=== PATIENT | female | born 1950 | race Caucasian/White ===

== ENCOUNTER 2017-12-11 06:31 | Emergency (ER) | payer MEDICARE, BC ==
[2017-12-11 06:43] VITALS: BP 193/94
--- NOTE | 2017-12-11 07:43 | EDM.PDOCBH ---
ED HPI GENERAL MEDICAL PROBLEM - General Chief Complaint: Behavioral/Psych Stated Complaint: CAN'T SLEEP Time Seen by Provider: 12/11/17 07:00 Source of Information: Reports: Patient History Limitations: Reports: No Limitations - History of Present Illness INITIAL COMMENTS - FREE TEXT/NARRATIVE: 67-year-old female with a chronic history of anxiety is in the emergency room because of persistent sense of unrest, hypertension, inability to sleep for the past several days. No chest pain, shortness of breath, fevers or chills or other physical symptoms. Apparently she was in the clinic several days ago and received some hydroxyzine, it's not working. 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: Psychiatric History: Reports: Anxiety - Infectious Disease History Infectious Disease History: Reports: Chicken Pox, Measles, Mumps Other Infectious Disease History: unknown - Past Surgical History HEENT Surgical History: Reports: Oral Surgery Female Surgical History: Reports: Tubal Ligation Social & Family History - Tobacco Use Smoking Status *Q: Unknown Ever Smoked - Caffeine Use Caffeine Use: Reports: Coffee ED ROS GENERAL - Review of Systems Review Of Systems: See Below Constitutional: Denies: Fever, Chills HEENT: Reports: No Symptoms Respiratory: Denies: Shortness of Breath, Cough Cardiovascular: Denies: Chest Pain, Palpitations GI/Abdominal: Denies: Nausea, Vomiting Skin: Reports: No Symptoms Neurological: Denies: Headache Psychiatric: Reports: Anxiety, Other (insomnia) ED EXAM, BEHAVIORAL HEALTH - Physical Exam Exam: See Below Exam Limited By: No Limitations General Appearance: Alert, No Apparent Distress, Anxious (patient is very anxious, at times tearful) Throat/Mouth: Normal Inspection Head: Atraumatic Neck: Normal Inspection Respiratory/Chest: No Respiratory Distress, Lungs Clear Cardiovascular: Regular Rate, Rhythm. No: Extra Beats Neurological: Alert, Oriented x 3 Psychiatric: Restless, Other (very anxious) COURSE, BEHAVIORAL HEALTH COMP - Course Vital Signs: Last Vital Signs Temp 96.9 F 12/11/17 06:41 Pulse 91 12/11/17 06:41 Resp 15 12/11/17 06:41 BP 193/94 H 12/11/17 06:41 Pulse Ox 95 12/11/17 06:41 Re-Assessment/Re-Exam: I ssessed the patient's records from the clinic, and on her medication list is 150 mg extended release Wellbutrin on a daily basis. There is also when necessary Klonopin. When I asked her about these medications she said she stopped the Wellbutrin 5 or 6 days ago because it was for weight loss and it "wasn't working". She doesn't remember the last time she has had Klonopin. Salvador is also on her medication list, she doesn't think she's taking that anymore. I told her it's very possible her symptoms are correlated with the stopping of the Wellbutrin but then a few minutes later she asked again why she is having her symptoms. She needs to go talk to her primary provider and get these medication issue straightened out. Juany is also listed on her medications and she doesn't take that anymore because she "didn't think she needed it". Departure - Departure Time of Disposition: 07:56 Disposition: Home, Self-Care 01 Condition: Good Clinical Impression: Anxiety, Essential hypertension - Discharge Information Instructions: Generalized Anxiety Disorder, Adult Referrals: Liana Suazo MD [Primary Care Provider] - Forms: ED Department Discharge Care Plan Goals: Restart Wellbutrin as prescribed. Continue your other medications and use Ativan as directed to help you calm down and get sleep. It is extremely important that you contact your regular doctor next week karina appointment to discuss your medications.
== END 2017-12-11 07:56 | disposition home or self-care (01) ==
LOC: JP.ED 06:31
DX: F41.9 Anxiety disorder, unspecified (principal); I10 Essential (primary) hypertension; E78.00 Pure hypercholesterolemia, unspecified; Z79.899 Other long term (current) drug therapy
CPT/HCPCS: 99285

== ENCOUNTER 2018-01-27 10:25 | Emergency (ER) | payer MEDICARE, BC ==
[2018-01-27] MEDS ORDERED: LORazepam 0.5 MG Tab PO ONE (11:10)
[2018-01-27] MEDS ORDERED: Potassium Chloride 20 MEQ Tab.ER PO ONE (12:25)
--- NOTE | 2018-01-27 12:25 | EDM.PDOCBH ---
ED HPI GENERAL MEDICAL PROBLEM - General Chief Complaint: Behavioral/Psych Stated Complaint: ANXIETY ATTACK Time Seen by Provider: 01/27/18 10:40 Source of Information: Reports: Patient History Limitations: Reports: No Limitations - History of Present Illness INITIAL COMMENTS - FREE TEXT/NARRATIVE: pt arrived very tense and stated that she had alot of wandering thoughts and kept going over what she had not gotten done for the day. She is not able to rest and becomes very sleep deprived. Onset: Gradual, Other ( This has been going on since early December. ) Duration: Hour(s):, Getting Worse Location: Reports: Head Associated Symptoms: Reports: No Other Symptoms - Related Data Allergies Allergy/AdvReac Type Severity Reaction Status Date / Time No Known Allergies Allergy Verified 01/27/18 10:41 Home Meds: Home Meds Lisinopril 20 mg PO DAILY 06/03/16 [History] hydrOXYzine HCl [Atarax] 25 mg PO Q8H 12/11/17 [History] Atenolol 1 tab PO DAILY 01/27/18 [History] LORazepam 1 tab PO ASDIRECTED 01/27/18 [History] Pravastatin Sodium 1 tab PO DAILY 01/27/18 [History] Past Medical History HEENT History: Reports: Impaired Vision Cardiovascular History: Reports: High Cholesterol, Hypertension 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: Psychiatric History: Reports: Anxiety - Infectious Disease History Infectious Disease History: Reports: Chicken Pox, Measles, Mumps Other Infectious Disease History: unknown - Past Surgical History HEENT Surgical History: Reports: Oral Surgery Female Surgical History: Reports: Tubal Ligation Social & Family History - Tobacco Use Smoking Status *Q: Heavy Tobacco Smoker Years of Tobacco use: 40 Packs/Tins Daily: 1 - Caffeine Use Caffeine Use: Reports: Coffee - Recreational Drug Use Recreational Drug Use: No ED ROS GENERAL - Review of Systems Review Of Systems: See Below Constitutional: Reports: No Symptoms HEENT: Reports: No Symptoms Respiratory: Reports: No Symptoms Cardiovascular: Reports: No Symptoms Endocrine: Reports: No Symptoms GI/Abdominal: Reports: No Symptoms : Reports: No Symptoms Musculoskeletal: Reports: No Symptoms Skin: Reports: No Symptoms Neurological: Reports: Trouble Speaking, Other (liteheaded, pt was so tense that she had difficulty speaking. ) Psychiatric: Reports: Anxiety, Depression Hematologic/Lymphatic: Reports: No Symptoms ED EXAM, BEHAVIORAL HEALTH - Physical Exam Exam: See Below Text/Narrative:: Pt arrived with a history of racing thoughts and going over and over what she should have gotten done. She is not restimg. Exam Limited By: No Limitations General Appearance: Alert, Mild Distress, Other (ppupils equal and reactive. ) Ears: Normal TMs Nose: Normal Inspection Throat/Mouth: Normal Inspection Head: Atraumatic Neck: Normal Inspection Respiratory/Chest: No Respiratory Distress Cardiovascular: Regular Rate, Rhythm GI/Abdominal: Soft, Non-Tender (Female) Exam: Deferred Rectal (Female) Exam: Deferred Back Exam: Normal Inspection Extremities: Normal Inspection Neurological: Alert, Oriented x 3 Psychiatric: Alert, Oriented, Restless, Agitated COURSE, BEHAVIORAL HEALTH COMP - Course Vital Signs: Last Vital Signs Temp 35.4 C 01/27/18 10:40 Pulse 99 01/27/18 13:17 Resp 24 H 01/27/18 13:17 BP 133/84 01/27/18 13:17 Pulse Ox 96 01/27/18 13:17 Orthostatic Blood Pressure [ 145/70 Standing] Orthostatic Blood Pressure [ 153/77 Sitting] Orthostatic Blood Pressure [ 144/79 Supine] Orders, Labs, Meds: Laboratory Tests 01/27/18 01/27/18 01/27/18 Range/Units 11:09 11:09 11:09 WBC 15.8 H (4.5-11.0) K/uL RBC 4.93 (3.30-5.50) M/uL Hgb 14.9 (12.0-15.0) g/dL Hct 43.9 (36.0-48.0) % MCV 89 (80-98) fL MCH 30 (27-31) pg MCHC 34 (32-36) % Plt Count 259 (150-400) K/uL Neut % (Auto) 64 (36-66) % Lymph % (Auto) 24 (24-44) % [place] % (Auto) 10 H (2-6) % Eos % (Auto) 1 L (2-4) % Baso % (Auto) 0 (0-1) % Sodium 136 L (140-148) mmol/L Potassium 3.2 L (3.6-5.2) mmol/L Chloride 101 (100-108) mmol/L Carbon Dioxide 23 (21-32) mmol/L Anion Gap 15.2 H (5.0-14.0) mmol/L BUN 63 H D (7-18) mg/dL Creatinine 2.7 H D (0.6-1.0) mg/dL Est Cr Clr Drug Dosing 18.67 mL/min Estimated GFR (MDRD) 18 L (>60) Glucose 111 H (74-106) mg/dL Calcium 8.8 (8.5-10.1) mg/dL Total Bilirubin 0.5 (0.2-1.0) mg/dL AST 19 (15-37) U/L ALT 23 (12-78) U/L Alkaline Phosphatase 63 (46-116) U/L Total Protein 6.7 (6.4-8.2) g/dL Albumin 3.6 (3.4-5.0) g/dL Globulin 3.1 (2.3-3.5) g/dL Albumin/Globulin Ratio 1.2 (1.2-2.2) TSH, Ultra Sensitive 1.110 (0.358-3.740) uIU/mL Urine Color Urine Appearance Urine pH (4.5-8.0) Ur Specific [place] (1.008-1.030) Urine Protein (NEGATIVE) mg/dL Urine Glucose (UA) (NEGATIVE) mg/dL Urine Ketones (NEGATIVE) mg/dL Urine Occult Blood (NEGATIVE) Urine Nitrite (NEGATIVE) Urine Bilirubin (NEGATIVE) Urine Urobilinogen (NORMAL) mg/dL Ur Leukocyte Esterase (NEGATIVE) Urine RBC (0-5) Urine WBC (0-5) Ur Epithelial Cells Amorphous Sediment Urine Bacteria Urine Mucus 01/27/18 Range/Units 11:46 WBC (4.5-11.0) K/uL RBC (3.30-5.50) M/uL Hgb (12.0-15.0) g/dL Hct (36.0-48.0) % MCV (80-98) fL MCH (27-31) pg MCHC (32-36) % Plt Count (150-400) K/uL Neut % (Auto) (36-66) % Lymph % (Auto) (24-44) % [place] % (Auto) (2-6) % Eos % (Auto) (2-4) % Baso % (Auto) (0-1) % Sodium (140-148) mmol/L Potassium (3.6-5.2) mmol/L Chloride (100-108) mmol/L Carbon Dioxide (21-32) mmol/L Anion Gap (5.0-14.0) mmol/L BUN (7-18) mg/dL Creatinine (0.6-1.0) mg/dL Est Cr Clr Drug Dosing mL/min Estimated GFR (MDRD) (>60) Glucose (74-106) mg/dL Calcium (8.5-10.1) mg/dL Total Bilirubin (0.2-1.0) mg/dL AST (15-37) U/L ALT (12-78) U/L Alkaline Phosphatase (46-116) U/L Total Protein (6.4-8.2) g/dL Albumin (3.4-5.0) g/dL Globulin (2.3-3.5) g/dL Albumin/Globulin Ratio (1.2-2.2) TSH, Ultra Sensitive (0.358-3.740) uIU/mL Urine Color Yellow Urine Appearance Slightly cloudy Urine pH 5.0 (4.5-8.0) Ur Specific [place] 1.015 (1.008-1.030) Urine Protein Negative (NEGATIVE) mg/dL Urine Glucose (UA) Normal (NEGATIVE) mg/dL Urine Ketones Negative (NEGATIVE) mg/dL Urine Occult Blood Negative (NEGATIVE) Urine Nitrite Negative (NEGATIVE) Urine Bilirubin Negative (NEGATIVE) Urine Urobilinogen Normal (NORMAL) mg/dL Ur Leukocyte Esterase Large (NEGATIVE) Urine RBC 0-5 (0-5) Urine WBC 20-30 H (0-5) Ur Epithelial Cells Many Amorphous Sediment Not seen Urine Bacteria Not seen Urine Mucus Few Medications Discontinued Medications Generic Name Dose Route Start Last Admin Trade Name Freq PRN Reason Stop Dose Admin Sodium Chloride 1,000 mls @ 500 mls/hr 01/27/18 12:30 01/27/18 13:14 Normal Saline IV 500 mls/hr ASDIRECTED JAZZMINE Administration Lorazepam 0.5 mg 01/27/18 11:10 01/27/18 11:15 Ativan PO 01/27/18 11:11 0.5 mg ONETIME ONE Administration Potassium Chloride 20 meq 01/27/18 12:25 01/27/18 13:00 Klor-Con M20 PO 01/27/18 12:26 20 meq ONETIME ONE Administration Medical Clearance: 01/27/18 13:45 pt had a creatnine in 01/11 and it was 1.7, Her creatnine today is 2.7. She admits to not drinking fluids well. She has been very anxious and not doing well. Departure - Departure Time of Disposition: 14:45 Disposition: Home, Self-Care 01 Condition: Fair Clinical Impression: Renal insufficiency, Dehydration, UTI (urinary tract infection), Anxiety, Obsessive behaviors - Discharge Information Instructions: Generalized Anxiety Disorder, Adult, Urinary Tract Infection, Adult, [id number], Dehydration, Adult, [id number] Referrals: Liana Suazo MD [Primary Care Provider] - Forms: ED Department Discharge Care Plan Goals: appt with Dr Debra Suazo in [place] on Wednesday 01/31 @3PM. reevaluate pts pysch meds -- these were perscribed per the suggestion of Dr Calderon-psychiatrist. luvox 25 mg at hs to increase to 2 tabs at hs. seroquel 25 mg at hs and this is to be increased to 50mg hs, ativan .5 mg bid regularly. 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 push fluids.
[2018-01-27] MEDS ORDERED: Sodium Chloride 0.9% 1,000 ML IV SCH (12:30)
[2018-01-27 13:21] VITALS: BP 133/84
== END 2018-01-27 14:43 | disposition home or self-care (01) ==
LOC: JP.ED 10:25
DX: F41.9 Anxiety disorder, unspecified (principal); N39.0 Urinary tract infection, site not specified; E86.0 Dehydration; N28.9 Disorder of kidney and ureter, unspecified; F17.210 Nicotine dependence, cigarettes, uncomplicated; Z79.899 Other long term (current) drug therapy
CPT/HCPCS: 36415; 80053; 81001; 84443; 85025; 87086; 93005; 96360; 99284; A9270; J7030